=== PATIENT | male | born 1965 | race American Indian/Alaskan Native ===

== ENCOUNTER 2018-04-08 01:30 | Emergency (ER) | payer SELFPAY ==
[2018-04-08] MEDS ORDERED: ATROVENT IH ONE (01:40)
[2018-04-08] MEDS ORDERED: PROVENTIL IH ONE ×2 (01:40→05:26)
--- NOTE | 2018-04-08 02:10 | XRay Report ---
FINAL REPORT EXAM: XR CHEST 1V AP HISTORY: sob, asthma, cough TECHNIQUE: A portable upright view of the chest was submitted. FINDINGS: The heart size and vascularity appear normal. The lungs are hyperinflated. There are no infiltrates o r effusions. The skeletal structures do not show any acute changes. IMPRESSION: Hyperinflation. No acute process in the chest.
[2018-04-08 02:33] LABS: BUN/Creatinine Ratio 20; Blood Urea Nitrogen 14 mg/dL (9-20); Hemolysis Index 21
[2018-04-08 02:39] LABS: Basophils # (Auto) 0.1 K/mm3 (0.0-0.1); Basophils % (Auto) 0.8 % (0.0-1.8); Eosinophils % (Auto) 0.1 % (0.0-4.3); Hematocrit 44.4 % (35.5-45.6); Hemoglobin 14.5 gm/dl (11.8-15.2); Lymphocytes # (Auto) 1.6 K/mm3 (1.2-5.4); Mean Corpuscular HGB Conc 33 % (32-34); Mean Corpuscular Volume 90 fl (84-94); Monocytes # (Auto) 0.5 K/mm3 (0.0-0.8); Monocytes % (Auto) 5.1 % (0.0-7.3); Platelet Count 201 K/mm3 (140-440); Red Blood Count 4.96 M/mm3 (3.65-5.03); Red Cell Distribution Width 13.8 % (13.2-15.2)
--- NOTE | 2018-04-08 03:11 | Emergency Department Report ---
ED Asthma HPI - General Chief Complaint: Dyspnea/Respdistress Stated Complaint: KEIKO Time Seen by Provider: 04/08/18 01:35 Source: patient, EMS Mode of arrival: Stretcher Limitations: No Limitations - History of Present Illness Initial Comments: 52-year-old male hasasthma presents to the hospital complaining of wheezing and shortness of breath 3 days. Patient used his albuterol inhaler without improvement he does not have a nebulizer machine. He complains of a dry cough and chest tightness that is worse with inspiration. No reports of fever. EMS reports an initial room air saturation of 83% upon their arrival. Patient was treated with supplemental oxygen, albuterol, magnesium 2 g, and Solu-Medrol 125 mg prior to arrival. Patient presents still with wheezing, tachypnea, and chest tightness. He denies previous history of BiPAP use or intubations. He does not have a primary care doctor or dry color tester. he continues to smoke cigarettes. - Related Data Previous Rx's Medication Instructions Recorded Last Taken Type ALBUTEROL NEB's [Proventil 0.083% 2.5 mg IH TID PRN #30 neb 04/08/18 Unknown Rx NEBS] Albuterol Sulfate [Ventolin HFA] 2 puff IH Q4H PRN #1 hfa.aer.ad 04/08/18 Unk nown Rx Azithromycin [Zithromax Z-COMFORT] 1 dose PO DAILY 5 Days tab 04/08/18 Unknown Rx Nebulizer Accessories [Aeroneb Go] 1 each MC PRN PRN #1 each 04/08/18 Unknown Rx Nebulizer [Aeroneb Go Nebulizer] 1 each MC PRN PRN #1 each 04/08/18 Unknown Rx guaiFENesin/DEXTROMETHORPHAN 1 each PO BID PRN #20 tab.er.12h 04/08/18 Unknown Rx [Mucinex Dm ER 1,200-60 mg Tab] predniSONE [Deltasone] 40 mg PO QDAY 5 Days tab 04/08/18 Unknown Rx Allergies Allergy/AdvReac Type Severity Reaction Status Date / Time No Known Allergies Allergy Unverified 04/08/18 01:45 ED Review of Systems ROS: Stated complaint: KEIKO Other details as noted in HPI Comment: All other systems reviewed and negative ED Past Medical Hx - Past Medical History Previous Medical History?: Yes Hx Asthma: Yes - Surgical History Past Surgical History?: No - Social History Smoking Status: Current Every Day Smoker Substance Use Type: Alcohol, Marijuana - Medications Home Medications: Home Medications Medication Instructions Recorded Confirmed Last Taken Type ALBUTEROL NEB's [Proventil 0.083% 2.5 mg IH TID PRN #30 neb 04/08/18 Unknown Rx NEBS] Albuterol Sulfate [Ventolin HFA] 2 puff IH Q4H PRN #1 hfa.aer.ad 04/08/18 Unknown Rx Azithromycin [Zithromax Z-COMFORT] 1 dose PO DAILY 5 Days tab 04/08/18 Unknown Rx Nebulizer Accessories [Aeroneb Go] 1 each MC PRN PRN #1 each 04/08/18 Unknown Rx Nebulizer [Aeroneb Go Nebulizer] 1 each MC PRN PRN #1 each 04/08/18 Unknown Rx guaiFENesin/DEXTROMETHORPHAN 1 each PO BID PRN #20 tab.er.12h 04/08/18 Unknown Rx [Mucinex Dm ER 1,200-60 mg Tab] predniSONE [Deltasone] 40 mg PO QDAY 5 Days tab 04/08/18 Unknown Rx ED Physical Exam - General Limitations: No Limitations - Other Other exam information: General: No limitations, patient is alert in no acute distress Head exam: Atraumatic, normocephalic Eyes exam: Normal appearance ENT: Moist mucous membrane, normal oropharynx Neck exam: Normal inspection, full range of motion, no meningismus nontender Respiratory exam: Tachypnea, mild accessory muscle use, end expiratory wheezes, moderate air move Cardiovascular: Tachycardic regular rhythm Abdomen: Soft, nondistended, and nontender, with normal bowel sounds, no rebound, or guarding Extremity: Full range of motion normal inspection no deformity, no calf tenderness or edema Back: Normal Inspection, full range of motion, no tenderness Neurologic: Alert, oriented x3, cranial nerves intact, no motor or sensory deficit Psychiatric: normal affect, normal mood Skin: Warm, dry, intact ED Course Vital Signs 04/08/18 04/08/18 04/08/18 01:41 01:45 02:06 Temperature 98 F Pulse Rate 110 H 110 H Pulse Rate [ 110 H Posterior Bilateral Throughout] Respiratory 26 H Rate Respiratory 24 Rate [Posterior Bilateral Throughout] Blood Pressure 158/83 Blood Pressure 158/83 [Right] O2 Sat by Pulse 98 Oximetry 04/08/18 04/08/18 04/08/18 02:13 02:30 02:45 Temperature Pulse Rate 102 H Pulse Rate [ 104 H Posterior Bilateral Throughout] Respiratory 22 18 Rate Respiratory 14 Rate [Posterior Bilateral Throughout] Blood Pressure Blood Pressure 168/78 [Right] O2 Sat by Pulse 98 92 Oximetry 04/08/18 04/08/18 04/08/18 02:48 03:00 03:15 Temperature Pulse Rate 98 H 107 H 101 H Pulse Rate [ Posterior Bilateral Throughout] Respiratory 16 18 17 Rate Respiratory Rate [Posterior Bilateral Throughout] Blood Pressure 130/90 163/81 134/76 Blood Pressure [Right] O2 Sat by Pulse 90 98 98 Oximetry 04/08/18 04/08/18 04/08/18 03:30 03:45 04:00 Temperature Pulse Rate 103 H 101 H 106 H Pulse Rate [ Posterior Bilateral Throughout] Respiratory 18 17 14 Rate Respiratory Rate [Posterior Bilateral Throughout] Blood Pressure 145/82 151/87 153/80 Blood Pressure [Right] O2 Sat by Pulse 98 98 99 Oximetry 04/08/18 04/08/18 04/08/18 04:16 04:30 04:45 Temperature Pulse Rate 123 H 129 H 100 H Pulse Rate [ Posterior Bilateral Throughout] Respiratory 19 26 H 18 Rate Respiratory Rate [Posterior Bilateral Throughout] Blood Pressure 153/80 157/92 144/77 Blood Pressure [Right] O2 Sat by Pulse 98 100 99 Oximetry 04/08/18 04/08/18 05:09 05:35 Temperature Pulse Rate 104 H Pulse Rate [ 105 H Posterior Bilateral Throughout] Respiratory 20 Rate Respiratory 16 Rate [Posterior Bilateral Throughout] Blood Pressure Blood Pressure 152/84 [Right] O2 Sat by Pulse 96 Oximetry - Reevaluation(s) Reevaluation #1: 04/08/18 05:32 Patient felt much better after ED treatment and saturation of 97% on room air. Patient decided to 93% with exertion but denied feeling unusual shortness of breath. Requesting one more neb prior to discharge. ED Medical Decision Making - Lab Data Result diagrams: 04/08/18 02:00 04/08/18 02:00 Lab Results 04/08/18 04/08/18 Range/Units 02:00 02:00 WBC 10.6 (4.5-11.0) K/mm3 RBC 4.96 (3.65-5.03) M/mm3 Hgb 14.5 (11.8-15.2) gm/dl Hct 44.4 (35.5-45.6) % MCV 90 (84-94) fl MCH 29 (28-32) pg MCHC 33 (32-34) % RDW 13.8 (13.2-15.2) % Plt Count 201 (140-440) K/mm3 Lymph % (Auto) 15.0 (13.4-35.0) % Sierra % (Auto) 5.1 (0.0-7.3) % Eos % (Auto) 0.1 (0.0-4.3) % Baso % (Auto) 0.8 (0.0-1.8) % Lymph # 1.6 (1.2-5.4) K/mm3 Sierra # 0.5 (0.0-0.8) K/mm3 Eos # 0.0 (0.0-0.4) K/mm3 Baso # 0.1 (0.0-0.1) K/mm3 Seg Neutrophils % 79.0 H (40.0-70.0) % Seg Neutrophils # 8.4 H (1.8-7.7) K/mm3 Sodium 139 (137-145) mmol/L Potassium 3.7 (3.6-5.0) mmol/L Chloride 104.2 (98-107) mmol/L Carbon Dioxide 24 (22-30) mmol/L Anion Gap 15 mmol/L BUN 14 (9-20) mg/dL Creatinine 0.7 L (0.8-1.5) mg/dL Estimated GFR > 60 ml/min BUN/Creatinine Ratio 20 % Glucose 142 H (75-100) mg/dL Calcium 8.0 L (8.4-10.2) mg/dL - EKG Data -: EKG Interpreted by Pr EKG shows normal: sinus rhythm, axis (qrs 33), QRS complexes (qrsd 80), ST-T waves Rate: tachycardia (103) - Radiology Data Radiology results: report reviewed Chest x-ray: Hyperinflation without acute findings. - Medical Decision Making Patient presents to the hospital with asthma exacerbation and probable viral infection. X-ray does not reveal infiltrate. He was treated empirically with antibiotics and symptomatic treatment for asthma exacerbation/bronchitis. - Differential Diagnosis asthma, COPD, pneumonia, bronchitis Critical Care Time: No Critical care attestation.: If time is entered above; I have spent that time in minutes in the direct care of this critically ill patient, excluding procedure time. ED Disposition Clinical Impression: Acute asthmatic bronchitis Disposition: TO HOME OR SELFCARE Is pt being admited?: No Does the pt Need Aspirin: No Condition: Stable Instructions: Acute Bronchitis (ED) Additional Instructions: Take the medication as prescribed. Follow up with your doctor or the doctor/clinic provided. Return if symptoms worsen as indicated by your discharge instructions. Use a good RX card provided when you fill your medications to make your medications more affordable Prescriptions: ALBUTEROL NEB's [Proventil 0.083% NEBS] 2.5 mg IH TID PRN #30 neb PRN Reason: Wheezing Albuterol Sulfate [Ventolin HFA] 2 puff IH Q4H PRN #1 hfa.aer.ad PRN Reason: Shortness Of Breath Azithromycin [Zithromax Z-COMFORT] 1 dose PO DAILY 5 Days tab guaiFENesin/DEXTROMETHORPHAN [Mucinex Dm ER 1,200-60 mg Tab] 1 each PO BID PRN #20 tab.er.12h PRN Reason: Cough Nebulizer [Aeroneb Go Nebulizer] 1 each MC PRN PRN #1 each PRN Reason: Wheezing Nebulizer Accessories [Aeroneb Go] 1 each MC PRN PRN #1 each PRN Reason: Wheezing predniSONE [Deltasone] 40 mg PO QDAY 5 Days tab Referrals: MEIR ABBOTT MD [Primary Care Provider] - 3-5 Days [facility] [Provider Group] - 3-5 Days Forms: Work/School Release Form(ED) Time of Disposition: 06:10
[2018-04-08 06:34] VITALS: BP 124/77
== END 2018-04-08 06:51 | disposition home or self-care (01) ==
LOC: ED 01:30
DX: J44.9 Chronic obstructive pulmonary disease, unspecified (principal); F17.200 Nicotine dependence, unspecified, uncomplicated; F12.10 Cannabis abuse, uncomplicated
CPT/HCPCS: 36415; 71045; 80048; 85025; 93005; 93010; 94640